=== PATIENT | female | born 1985 | race Caucasian/White ===

== ENCOUNTER 2022-11-10 06:17 | Inpatient (IN) ==
[2022-11-10] MEDS ORDERED: ANCEF VIAL 1 GRAM IVP ONE (06:34)
[2022-11-10] MEDS ORDERED: D5 1/2 NS 1,000 ML 1,000 ML IV SCH (06:34)
[2022-11-10] MEDS ORDERED: NS 100 ML IV 100 ML ONE (06:36)
[2022-11-10] MEDS ORDERED: BETADINE SOLN ONE (06:49)
[2022-11-10] MEDS ORDERED: ProvayBLUE 0.5% ONE (06:49)
[2022-11-10] MEDS ORDERED: VERSED ONE (06:57)
[2022-11-10] MEDS ORDERED: PEPCID 20 MG VIAL ONE (06:57)
[2022-11-10] MEDS ORDERED: ZOFRAN INJ 4 MG VIAL ONE (06:57)
[2022-11-10] MEDS ORDERED: DECADRON INJ ONE (06:57)
[2022-11-10] MEDS ORDERED: REGLAN INJ 10 MG VIAL ONE (06:57)
[2022-11-10] MEDS ORDERED: FENTANYL VIAL INJ 100 mcg ONE ×2 (06:57→07:46)
[2022-11-10] MEDS ORDERED: BARHEMSYS INJ ONE (07:00)
[2022-11-10] MEDS ORDERED: OFIRMEV IV 1000 MG VIAL 1,000 MG/100 ML VIAL IV ONE (07:11)
[2022-11-10] MEDS ORDERED: ZEMURON 100 MG VIAL ONE (07:11)
[2022-11-10] MEDS ORDERED: DIPRIVAN VIAL 20 ML ONE (07:11)
[2022-11-10] MEDS ORDERED: TORADOL 30 MG VIAL ONE (07:11)
[2022-11-10] MEDS ORDERED: BRIDION ONE (07:11)
[2022-11-10] MEDS ORDERED: XYLOCAINE 2 % (PLAIN) ONE (07:12)
[2022-11-10 07:17] VITALS: BMI 33.5
[2022-11-10] MEDS ORDERED: SUPRANE ONE (07:21)
[2022-11-10] MEDS ORDERED: DILAUDID INJ ONE (08:34)
[2022-11-10] MEDS ORDERED: LR 1,000 ML IV 1,000 ML IV ONE (08:38)
[2022-11-10] MEDS ORDERED: DILAUDID INJ IVP PRN (09:34)
[2022-11-10] MEDS ORDERED: BENADRYL INJ 50 MG VIAL IVP PRN ×2 (09:34→10:15)
[2022-11-10] MEDS ORDERED: ZOFRAN INJ 4 MG VIAL IVP PRN (09:34)
[2022-11-10] MEDS ORDERED: BARHEMSYS INJ IVP PRN (09:34)
[2022-11-10] MEDS ORDERED: REGLAN INJ 10 MG VIAL IVP PRN (09:34)
[2022-11-10] MEDS: ZOFRAN INJ 4 MG VIAL IVP PRN (11:30)
[2022-11-10] MEDS: D5 1/2 NS 1,000 ML 1,000 ML IV SCH ×2 (11:31→20:47)
[2022-11-10] MEDS: MORPHINE SULFATE PCA 30 MG IVP PRN (11:32)
[2022-11-10] MEDS: PHENERGAN INJ 25 MG IM PRN (17:40)
[2022-11-10] MEDS: TORADOL 30 MG VIAL IVP PRN (20:49)
[2022-11-11] MEDS: MORPHINE SULFATE PCA 30 MG IVP PRN (01:27)
[2022-11-11] MEDS: D5 1/2 NS 1,000 ML 1,000 ML IV SCH ×3 (02:15→19:42)
[2022-11-11] MEDS: TORADOL 30 MG VIAL IVP PRN (03:27)
[2022-11-11 05:25] LABS: BASOPHILS % (AUTO) 0.1 % (0.2-1.0); HEMATOCRIT 34.7 % (36.0-47.0); HEMOGLOBIN 11.6 g/dL (12.0-16.0); LYMPHOCYTES # (AUTO) 1.4 X10^3/uL (1.3-2.9); LYMPHOCYTES % (AUTO) 11.2 % (21.0-51.0); MEAN CORPUSCULAR HEMOGLOBIN 30.6 pg (27.0-34.0); MEAN CORPUSCULAR HGB CONC 33.6 g/dL (33.0-35.0); MEAN CORPUSCULAR VOLUME 91.1 fL (80.0-100.0); MEAN PLATELET VOLUME 8.8 fL (7.4-11.0); MONOCYTES # (AUTO) 1.2 x10^3/uL (0.3-0.8); MONOCYTES % (AUTO) 9.4 % (0.0-13.0); NEUTROPHILS % (AUTO) 79.3 % (42.0-75.0); RED CELL DISTRIBUTION WIDTH 13.1 % (11.6-16.5); WHITE BLOOD COUNT 12.5 X10^3/uL (3.6-10.0)
[2022-11-11 05:34] LABS: BLOOD UREA NITROGEN 8 mg/dL (7-18); CALCIUM 8.1 mg/dL (8.5-10.1); CARBON DIOXIDE 27.7 mmol/L (21-32); CHLORIDE 107 mmol/L (98-107); COR NA(FOR HYPERGLY) 140 mmol/L (136-145); CREATININE 0.65 mg/dL (0.55-1.02); SODIUM 140 mmol/L (136-145); eGFR NON BLACK RACES > 60 (>60)
[2022-11-11] MEDS: COLACE CAP 100 MG PO SCH ×2 (09:35→20:56)
[2022-11-11] MEDS: LOVENOX INJ 40 MG SYR SC SCH (09:35)
[2022-11-11] MEDS: ESTRACE PO SCH (09:35)
[2022-11-11] MEDS: COZAAR PO SCH (09:35)
[2022-11-11] MEDS: BACTROBAN TOPICAL OINT TOP SCH ×2 (15:00→21:00)
[2022-11-11] MEDS: MOTRIN TAB 800 MG PO PRN (15:00)
[2022-11-11] MEDS: PERCOCET TAB 5/325 MG PO PRN ×2 (17:00→23:06)
[2022-11-11] MEDS ORDERED: TUMS PO PRN (17:11)
[2022-11-11] MEDS: PROTONIX TAB 40 MG PO SCH (18:20)
[2022-11-11] MEDS: ZOFRAN INJ 4 MG VIAL IVP PRN (19:41)
[2022-11-11] MEDS: PHENERGAN INJ 25 MG IM PRN (21:57)
[2022-11-12] MEDS: D5 1/2 NS 1,000 ML 1,000 ML IV SCH (03:50)
[2022-11-12] MEDS: BACTROBAN TOPICAL OINT TOP SCH (05:37)
[2022-11-12] MEDS: PERCOCET TAB 5/325 MG PO PRN (05:58)
[2022-11-12] MEDS: MOTRIN TAB 800 MG PO PRN (08:08)
[2022-11-12] MEDS: COZAAR PO SCH (08:38)
[2022-11-12] MEDS: ESTRACE PO SCH (08:38)
[2022-11-12] MEDS: COLACE CAP 100 MG PO SCH (08:38)
[2022-11-12] MEDS: LOVENOX INJ 40 MG SYR SC SCH (08:38)
[2022-11-12] MEDS: PROTONIX TAB 40 MG PO SCH (08:38)
[2022-11-12 09:02] VITALS: BP 138/80
== END 2022-11-12 09:20 | disposition home or self-care (01) | DRG 743 ==
LOC: MED/SURG 06:17
PROVIDERS: ADMIT Specialist; ATTEND Specialist
DX: I10 Essential (primary) hypertension; N92.5 Other specified irregular menstruation; D25.2 Subserosal leiomyoma of uterus; N94.10 Unspecified dyspareunia; R10.2 Pelvic and perineal pain